=== PATIENT | female | born 1985 | race Native Hawaiian/Other Pacific Islander ===

== ENCOUNTER 2022-08-13 09:49 | Outpatient (CLI) | payer OTHER ==
[2022-08-13 10:14] LABS: PLATELET COUNT 402 K/uL (152-353)
== END 2022-08-13 19:54 | disposition home or self-care (01) ==
LOC: LABW 09:49
PROVIDERS: ATTEND Nurse Practitioner Family
DX: D64.9 Anemia, unspecified (principal)
CPT/HCPCS: 36415; 82728; 83540; 83550; 85027

== ENCOUNTER 2022-08-14 11:23 | Outpatient (CLI) | payer OTHER | END 2022-08-14 20:16 | disposition home or self-care (01) | LOC: INF 11:23 → LABW 11:23 → LAB 11:23 → LABW 20:16 | PROVIDERS: ATTEND Internal Medicine | PROC: 30233N1 Transfusion of Nonautologous Red Blood Cells into Peripheral Vein, Percutaneous Approach (ICD-10-PCS; principal; 2022-08-14) | DX: D50.9 Iron deficiency anemia, unspecified (principal) | CPT/HCPCS: 36415; 36430; 86850; 86900; 86901; 86922; P9016 ==